=== PATIENT | male | born 1995 | race Hispanic/Latino ===

== ENCOUNTER 2018-01-11 20:22 | Emergency (ER) | payer OTHER ==
[2018-01-11] MEDS ORDERED: LIDOCAINE HCL MPF 1% 5ML VIAL ONE (20:58)
== END 2018-01-11 22:22 | disposition home or self-care (01) ==
LOC: EDH 20:22
DX: L02.416 Cutaneous abscess of left lower limb (principal)
CPT/HCPCS: 10060; 99283; J3490